=== PATIENT | female | born 1995 | race Hispanic/Latino ===

== ENCOUNTER 2016-09-06 05:07 | Emergency (ER) ==
[2016-09-06 06:33] LABS: URINE MICRO REVIEW NEEDED? NO; URINE SOURCE CLEAN CATCH
[2016-09-06 06:37] LABS: BASO% 0.5 % (0.0-0.8); EOS# 0.13 X1000 (0.0-0.7); HEMATOCRIT 32.4 % (37.0-47.0); HEMOGLOBIN 10.2 g/dL (12.0-16.0); LYMPH# 1.38 X1000 (1.2-3.4); LYMPH% 21.2 % (20.5-51.1); MANUAL DIFF NEEDED? NO; MCH 22.6 PG (27-31); MCHC 31.5 g/dL (33-37); MCV 71.7 FL (81-99); MONO# 0.31 X1000 (0.11-0.59); MONO% 4.8 % (1.7-9.3); MPV 12.2 FL (7.4-10.4); NEUT% 71.5 % (42.2-75.2); PLT 213 X1000 (130-400); RBC 4.52 XMIL (4.2-5.4)
[2016-09-06 06:38] LABS: BILIRUBIN URINE NEGATIVE (NEGATIVE); BLOOD URINE NEGATIVE (NEGATIVE); COLOR YELLOW; GLUCOSE URINE NEGATIVE (NEGATIVE); LEUKOCYTES URINE NEGATIVE (NEGATIVE); NITRITE URINE NEGATIVE (NEGATIVE); PH URINE 6.5; PROTEIN URINE NEGATIVE (NEGATIVE); SP GRAVITY URINE 1.015; TURBIDITY URINE CLEAR (CLEAR); UROBILINOGEN URINE NORMAL (NORMAL)
[2016-09-06 06:39] LABS: UR EPITHELIAL CELLS >10 /HPF (<10); URINE BACTERIA 1+ /HPF; URINE CULTURE NEEDED? YES; URINE RBC <10 /HPF (<10)
[2016-09-06 06:47] LABS: AGAP 13; ALKALINE PHOSPHATASE 63 U/L (32-104); AMYLASE 85 U/L (20-200); BUN 11 mg/dL (8-22); CALCIUM 8.9 mg/dL (8.8-10.2); CHLORIDE 103 mmol/L (98-107); COSMO 278; GOT 97 U/L (10-30); GPT 45 U/L (10-36); LIPASE 71 U/L (13-60); SODIUM 140 mmol/L (136-145); TCO2 24 mmol/L (25-35); TOTAL BILIRUBIN 0.82 mg/dL (0.20-1.00); TOTAL PROTEIN 6.9 g/dL (6.3-8.3)
--- NOTE | 2016-09-06 08:59 | ED EKG INTERP ---
EKG Interpretation - EKG Time of EKG reading by physician:: 05:14 EKG Read and Signed by:: Curtis Roberts EKG Interpretation (*Must complete 3 of following elements*): Normal Rate: 56 Rhythm: sinus carlos [place]: normal QRS: normal ND Interval: normal ST Wave: normal
--- NOTE | 2016-09-06 09:23 | PROVIDER DOCUMENTATION ---
HPI-Abdominal Pain/GI Problem - General Source: patient - History of Present Illness-ABD Nature of Presenting Problems: 21 y/o F presents to ED cc of RUQ pain. Pt states she was seen here in mar for same pain and was dx with gall stones. Pt states she has not followed up due to no insurance. 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 Pt reports nausea with some vomiting this am. Pt is in no distress. Abdominal Pain Onset Location: reports: RUQ Pain Radiation: reports: no radiation Quality of Pain: reports: pressure Severity in ED: reports: mild Onset/Duration: reports: just prior to arrival Timing: reports: still present Activities at Onset: reports: light activity Modifying Factors: improves with: nothing Associated Symptoms: reports: nausea, vomiting, other (RUQ PAIN). denies: chest pain, diarrhea, shortness of breath Last BM: unsure Dark Stools Present?: reports: none noticed Rectal Bleeding: reports: none Rectal Pain: reports: none Bruising or Bleeding Gums?: No Similar Symptoms Previously?: Yes (04/19/16) Recently seen or treated by another doctor?: No <Sophia Monique - Last Filed: 09/06/16 09:18> <Franklyn Chapa - Last Filed: 09/06/16 09:27> - General Chief Complaint: Epigastric Pain Stated Complaint: CP Time Seen by Provider: 09/06/16 09:11 Allergies/Adverse Reactions: Patient Allergies Allergy/AdvReac Type Severity Reaction Status Date / Time No Known Allergies Allergy Verified 09/06/16 05:16 Home Medications: Home Medication List Medication Instructions Recorded Confirmed Last Taken Type Tramadol [Ultram] 50 mg PO Q8HR #12 tablet 04/19/16 09/06/16 09/05/16 14:00 Rx Review of Systems - Adult - REVIEW OF SYSTEMS - ADULT Constitutional: denies: chills, fever Cardiovascular: denies: chest pain, palpitations Respiratory: denies: cough, shortness of breath Gastrointestinal: reports: abdominal pain (RUQ), nausea, vomiting. denies: diarrhea Genitourinary: denies: discharge, frequency Musculoskeletal: denies: bone pain, back pain Neurological: denies: dizziness/vertigo, headache/migraines <Sophia Monique - Last Filed: 09/06/16 09:18> Past History - Adult - PAST MEDICAL HISTORY-ADULT Review of Records: reports: Old Records Reviewed, Nursing Assessment Review Major Childhood Illnesses: reports: denies history Cardiovascular: reports: denies history Respiratory: reports: denies history Gastrointestinal: reports: denies history, other (gallstones) Obstetrical/Gynecological: reports: denies history Genitourinary: reports: denies history Musculoskeletal: reports: denies history Neurological: reports: denies history Endocrine/Immune: reports: denies history Other Conditions: reports: denies history - PRIOR SURGERIES/PROCEDURES Surgical/Procedure History: reports: none - IMMUNIZATION STATUS Childhood Immunizations: See Nurse Assessment Flu Vaccine: See Nurse Assessment - FAMILY HISTORY Family History: other (mother has gallstones ) - SOCIAL HISTORY Smoking: non-smoker Substance Use: denies Living Situation: family <Wilber Moniquenee - Last Filed: 09/06/16 09:18> Physical Exam-General - CONSTITUTIONAL General Appearance: appears well, alert, no apparent distress - EYES Eyes: pink conjunctivae - HEAD, EARS, NOSE, MOUTH & THROAT HENMT: moist mucous membranes - NECK Neck: non-tender, full range of motion - RESPIRATORY Respiratory: chest non-tender, lungs clear, normal breath sounds - CARDIOVASCULAR Cardiovascular: normal peripheral pulses, regular rate, rhythm, no edema, bradycardia - GASTROINTESTINAL (ABDOMEN) Abdominal Exam: normal bowel sounds, soft, tenderness (mild) - LYMPHATIC Lymphatic: no adenopathy - MUSCULOSKELETAL Back Exam: normal inspection, no CVA tenderness, no vertebral tenderness Extremity: normal range of motion, non-tender, normal gait - SKIN Integumentary: normal color, normal turgor, warm/dry - NEUROLOGIC Neurologic: java software architect II-XII nml as tested, grossly normal, no motor/sensory deficits - PSYCHIATRIC Psych/Mental Status: normal mood/affect, normal thought content, normal thought process, oriented x 3 <MoniqueSophia - Last Filed: 09/06/16 09:18> Progress - PLAN OF CARE/RESULTS Progress/Plan/Lab Results: PLAN: LABS DR CHAPA REVIEWED ULTRASOUND FROM LAST VISIT. PT DOES HAVE GALLSTONES. EXPLAINED TO PT ABOUT PROPER DIET TO HELP WITH SYMPTOMS. PT UNDERSTANDS THE PLAN OF NEEDING TO FOLLOW UP AND PROPER DIET. Laboratory Tests 0309/06/16 09/06/16 06:10 06:10 06:14 WBC RBC Hgb Hct MCV MCH MCHC RDW Std Deviation Plt Count MPV Immature Gran % (Auto) Neut % (Auto) Lymph % (Auto) [place] % (Auto) Eos % (Auto) Baso % (Auto) Immature Gran # (Auto) Neut # (Auto) Lymph # (Auto) [place] # (Auto) Eos # (Auto) Baso # (Auto) Sodium 140 Potassium 4.0 Chloride 103 Carbon Dioxide 24 L Anion Gap 13 BUN 11 Creatinine 0.7 Estimated GFR/1.73 m2 > 60 BUN/Creatinine Ratio 16 Glucose 93 Calculated Osmolality 278 Calcium 8.9 Total Bilirubin 0.82 AST 97 H ALT 45 H Alkaline Phosphatase 63 Total Protein 6.9 Albumin 4.0 Globulin 2.9 Albumin/Globulin Ratio 1.4 Amylase 85 Lipase 71 H Urine Source CLEAN CATCH Urine Color YELLOW Urine Turbidity CLEAR Urine pH 6.5 Ur Specific [place] 1.015 Urine Protein NEGATIVE Ur Glucose (Stick) NEGATIVE Ur Ketones (Stick) NEGATIVE Urine Blood NEGATIVE Urine Nitrite NEGATIVE Urine Bilirubin NEGATIVE Urobilinogen Dipstick NORMAL Urine Leukocytes NEGATIVE Urine WBC (Auto) 10-20 A Urine RBC (Auto) <10 U Epithel Cells (Auto) >10 A Urine Bacteria (Auto) 1+ Urine Test NEGATIVE 09/06/16 06:14 WBC 6.52 RBC 4.52 Hgb 10.2 L Hct 32.4 L MCV 71.7 L MCH 22.6 L MCHC 31.5 L RDW Std Deviation 18.9 H Plt Count 213 MPV 12.2 H Immature Gran % (Auto) 0.0 Neut % (Auto) 71.5 Lymph % (Auto) 21.2 [place] % (Auto) 4.8 Eos % (Auto) 2.0 Baso % (Auto) 0.5 Immature Gran # (Auto) 0.00 Neut # (Auto) 4.67 Lymph # (Auto) 1.38 [place] # (Auto) 0.31 Eos # (Auto) 0.13 Baso # (Auto) 0.03 Sodium Potassium Chloride Carbon Dioxide Anion Gap BUN Creatinine Estimated GFR/1.73 m2 BUN/Creatinine Ratio Glucose Calculated Osmolality Calcium Total Bilirubin AST ALT Alkaline Phosphatase Total Protein Albumin Globulin Albumin/Globulin Ratio Amylase Lipase Urine Source Urine Color Urine Turbidity Urine pH Ur Specific [place] Urine Protein Ur Glucose (Stick) Ur Ketones (Stick) Urine Blood Urine Nitrite Urine Bilirubin Urobilinogen Dipstick Urine Leukocytes Urine WBC (Auto) Urine RBC (Auto) U Epithel Cells (Auto) Urine Bacteria (Auto) Urine Test Orders Category Date Time Status NPO Diet 09/06/16 05:32 Active AMYLASE [CHEM] Stat Lab 09/06/16 06:14 Completed CBC WITH ELECTRONIC DIFF [HEME] Stat Lab 09/06/16 06:14 Completed COMPREHENSIVE METABOLIC PANEL [CHEM] Stat Lab 09/06/16 06:14 Completed LIPASE [CHEM] Stat Lab 09/06/16 06:14 Completed TEST-URINE [PREG] Stat Lab 09/06/16 06:10 Completed URINALYSIS W/POSS RFLX CULT [URINALYSIS] Stat Lab 09/06/16 06:10 Completed URINE CULTURE [RM] Routine Lab 09/06/16 06:42 Received EKG [EKG] Stat Ther 09/06/16 05:09 Ordered Vital Signs - 24 hr 09/06/16 05:11 Temperature 97.4 F L Pulse Rate 56 L Respiratory 18 Rate Blood Pressure 132/81 O2 Sat by Pulse 100 Oximetry <Sophia Monique - Last Filed: 09/06/16 09:18> Departure <Sophia Monique - Last Filed: 09/06/16 09:18> - Departure Time of Disposition Order: 09:26 Certified Medical Emergency: Emergent <Franklyn Chapa - Last Filed: 09/06/16 09:27> - Departure DIAGNOSIS: Cholelithiasis Qualifiers: Cholelithiasis location: gallbladder Cholecystitis presence: without cholecystitis Biliary obstruction: without biliary obstruction Qualified Code(s) : K80.20 - Calculus of gallbladder without cholecystitis without obstruction Disposition: HOME 01 Condition: Stable Additional Instructions: pt is due to have medical insurance in 3 weeks and will see a surgeon then ED Follow Up Instructions: You have been treated by a care provider in the Emergency Department. These instructions are being provided to you so you can have an understanding of how to care for yourself upon discharge. Upon discharge from the Emergency Department, you are responsible for making arrangements for follow-up care by a physician of your choice. Take all prescribed medications as directed. Return to the Emergency Department immediately for any new or worsening symptoms. You may call the Physician Referral phone number at [phone] to obtain a list of Physicians who are taking new patients. Referrals: None,PCP [Primary Care Provider] - Physician Attestation
[2016-09-06 09:56] VITALS: BP 109/58
--- NOTE | 2016-09-06 10:21 | EKG Report ---
Test Performed on : 09/06/2016 05:14:46 AM Test Reason : EPIGASTRIC PAIN Blood Pressure : / mmHG Vent. Rate : 056 BPM Atrial Rate : 056 BPM P-R Int : 148 ms QRS Dur : 084 ms QT Int : 412 ms P-R-T Axes : 019 063 040 degrees QTc Int : 397 ms Sinus bradycardia. with sinus arrhythmia. Otherwise normal ECG No previous ECGs available Unconfirmed Result
== END 2016-09-06 09:56 | disposition home or self-care (01) ==
LOC: ED 05:07
DX: K80.20 Calculus of gallbladder without cholecystitis without obstruction (principal); R10.11 Right upper quadrant pain; R11.2 Nausea with vomiting, unspecified; R10.13 Epigastric pain; R10.819 Abdominal tenderness, unspecified site
CPT/HCPCS: 80053; 81001; 81025; 82150; 83690; 85025; 87088; 93005